=== PATIENT | male | born 1955 | race Caucasian/White ===

== ENCOUNTER → 2023-07-05 07:19 | Outpatient (REF) | payer MEDICARE, OTHER, SELFPAY | LOC: HWRAD 07:19 | PROVIDERS: ATTENDING PHYSICIAN Otolaryngology; FAMILY PHYSICIAN Family Medicine | DX: J32.8 Other chronic sinusitis (principal) | CPT/HCPCS: 70486 ==

== ENCOUNTER → 2023-07-11 06:33 | Outpatient (REF) | payer MEDICARE, OTHER, SELFPAY ==
[2023-07-11 09:47] LABS: % Basophils 1.2 % (0-2); % Eosinophils 4.5 % (0-6); % Immature Granulocytes 0.4 % (0-0.5); % Lymphocytes 24.4 % (20.5-51.1); % Monocytes 10.4 % (1.7-9.3); % Neutrophils 59.1 % (42.2-75.2); Absolute Basophils 0.1 10^3/uL (0-0.2); Absolute Eosinophils 0.2 10^3/uL (0-0.7); Absolute Lymphocytes 1.2 10^3/uL (1.2-3.4); Absolute Monocytes 0.5 10^3/uL (0.1-0.6); Absolute Neutrophils 2.9 10^3/uL (1.4-6.5); Hematocrit 41.5 % (39.0-52.0); Hemoglobin 13.8 g/dL (13.0-18.0); Mean Corp Hgb Conc. 33.3 g/dL (33.0-37.0); Mean Corpuscular Hgb 30.7 pg (27.0-31.0); Mean Corpuscular Volume 92.2 fL (80.0-94.0); Mean Platelet Volume 10.3 fL (7.4-10.4); Nucleated Red Blood Cells % 0 % (-); Platelet Count 90 10^3/uL (130-400); Red Cell Dist. Width 12.1 % (11.5-14.5); White Blood Cell Count 4.9 10^3/uL (4.8-10.8)
[2023-07-11 11:23] LABS: Glycohemoglobin (HgbA1c) 5.6 % (4.0-5.6)
[2023-07-11 14:01] LABS: ALT (SGPT) 24 U/L (0-50); AST (SGOT) 27 U/L (17-59); Albumin 4.6 g/dl (3.5-5.0); Alkaline Phosphatase 89 U/L (38-126); Blood Urea Nitrogen 21 mg/dl (9-20); Calcium 9.8 mg/dl (8.4-10.2); Carbon Dioxide 29 mmol/L (22-30); Chloride 103 mmol/L (98-107); Glucose 103 mg/dl (70-99); HDL Cholesterol 53 mg/dl; LDL Cholesterol, Calculated 91 mg/dl; Sodium 138 mmol/L (135-145); Total Bilirubin 0.8 mg/dl (0.2-1.3); Total Cholesterol 166 mg/dl (50-199); Total Protein 6.4 g/dl (6.3-8.2); Triglyceride 110 mg/dl (10-149); Very Low Density Lipoprotein 22 mg/dl (0-30); eGFR 59.84
[2023-07-11 19:41] LABS: Prolactin 18.1 ng/ml (3.7-17.9)
[2023-07-11 19:56] LABS: TSH 5.78 uIU/ml (0.47-4.68)
== END ==
LOC: HWLAB 06:33
PROVIDERS: ATTENDING PHYSICIAN Family Medicine
DX: C91.10 Chronic lymphocytic leukemia of B-cell type not having achieved remission (principal); E78.2 Mixed hyperlipidemia; N18.31 Chronic kidney disease, stage 3a; R97.20 Elevated prostate specific antigen [PSA]; Z00.00 Encounter for general adult medical examination without abnormal findings; R73.09 Other abnormal glucose
CPT/HCPCS: 36415; 80053; 80061; 83036; 84146; 84403; 84443; 85025

== ENCOUNTER → 2023-09-06 07:02 | Outpatient (REF) | payer MEDICARE, OTHER, SELFPAY | LOC: SDSPAT 07:02 | PROVIDERS: ATTENDING PHYSICIAN Otolaryngology; FAMILY PHYSICIAN Family Medicine | DX: J32.8 Other chronic sinusitis (principal); J34.2 Deviated nasal septum | CPT/HCPCS: 36415; 93005 ==

== ENCOUNTER → 2023-09-19 06:27 | Day surgery (SDC) | payer MEDICARE, OTHER, SELFPAY ==
[2023-09-06 07:11] VITALS: BMI 23.6
[2023-09-19] VITALS (8 sets, daily range): BP systolic 114–154; BP diastolic 65–82; BMI 23.6
[2023-09-19] MEDS: NORMOSOL-R 1000 IV (07:44)
--- NOTE | 2023-09-19 10:42 | SUR.OPER ---
ROBLES SPLINTS AND NASOPORE BILATERAL NOSTRILS IN OR
== END ==
LOC: SDS 06:27
PROVIDERS: ATTENDING PHYSICIAN Otolaryngology
DX: J32.9 Chronic sinusitis, unspecified (principal); J34.2 Deviated nasal septum
CPT/HCPCS: 31276; 31256; 31257; 30520; 88304; 88311; 87070; 87075; 87077; 87185; 87205

== ENCOUNTER → 2023-12-14 06:26 | Outpatient (REF) | payer MEDICARE, OTHER, SELFPAY ==
[2023-12-14 09:41] LABS: % Basophils 1.4 % (0-2); % Eosinophils 5.4 % (0-6); % Lymphocytes 32.1 % (20.5-51.1); % Monocytes 10.6 % (1.7-9.3); % Neutrophils 50.5 % (42.2-75.2); Absolute Basophils 0.1 10^3/uL (0-0.2); Absolute Eosinophils 0.2 10^3/uL (0-0.7); Absolute Lymphocytes 1.2 10^3/uL (1.2-3.4); Absolute Monocytes 0.4 10^3/uL (0.1-0.6); Absolute Neutrophils 1.9 10^3/uL (1.4-6.5); Hematocrit 40.2 % (39.0-52.0); Hemoglobin 13.8 g/dL (13.0-18.0); Mean Corp Hgb Conc. 34.3 g/dL (33.0-37.0); Mean Corpuscular Hgb 29.9 pg (27.0-31.0); Mean Corpuscular Volume 87.2 fL (80.0-94.0); Mean Platelet Volume 11.7 fL (7.4-10.4); Nucleated Red Blood Cells % 0 % (-); Platelet Count 79 10^3/uL (130-400); Red Blood Cell Count 4.61 10^6/uL (4.70-6.10); White Blood Cell Count 3.7 10^3/uL (4.8-10.8)
[2023-12-14 10:08] LABS: ALT (SGPT) 36 U/L (0-50); AST (SGOT) 34 U/L (17-59); Albumin 4.5 g/dl (3.5-5.0); Alkaline Phosphatase 75 U/L (38-126); Blood Urea Nitrogen 23 mg/dl (9-20); Calcium 9.5 mg/dl (8.4-10.2); Carbon Dioxide 27 mmol/L (22-30); Chloride 104 mmol/L (98-107); Glucose 104 mg/dl (70-99); LDH 182 U/L (120-246); Sodium 141 mmol/L (135-145); Total Bilirubin 0.9 mg/dl (0.2-1.3); Total Protein 6.2 g/dl (6.3-8.2); eGFR 59.84
== END ==
LOC: HWLAB 06:26
PROVIDERS: ATTENDING PHYSICIAN Internal Medicine Hematology & Oncology; FAMILY PHYSICIAN Family Medicine
DX: C91.12 Chronic lymphocytic leukemia of B-cell type in relapse (principal); D69.6 Thrombocytopenia, unspecified; R16.1 Splenomegaly, not elsewhere classified; D70.9 Neutropenia, unspecified; R11.2 Nausea with vomiting, unspecified
CPT/HCPCS: 36415; 80053; 83615; 85025

== ENCOUNTER → 2023-12-21 07:56 | Outpatient (REF) | payer MEDICARE, OTHER, SELFPAY | LOC: HWRAD 07:56 | PROVIDERS: ATTENDING PHYSICIAN Internal Medicine Hematology & Oncology; FAMILY PHYSICIAN Family Medicine | DX: C91.12 Chronic lymphocytic leukemia of B-cell type in relapse (principal); D69.6 Thrombocytopenia, unspecified; R16.1 Splenomegaly, not elsewhere classified; D70.9 Neutropenia, unspecified; R11.2 Nausea with vomiting, unspecified | CPT/HCPCS: 71260; 74177; Q9967 ==

== ENCOUNTER → 2024-06-25 07:16 | Outpatient (REF) | payer MEDICARE, OTHER, SELFPAY ==
[2024-06-25 09:54] LABS: ALT (SGPT) 31 U/L (0-50); AST (SGOT) 28 U/L (17-59); Albumin 4.8 g/dl (3.5-5.0); Alkaline Phosphatase 71 U/L (38-126); Blood Urea Nitrogen 23 mg/dl (9-20); Calcium 9.7 mg/dl (8.4-10.2); Carbon Dioxide 29 mmol/L (22-30); Chloride 106 mmol/L (98-107); Glucose 102 mg/dl (70-99); HDL Cholesterol 47 mg/dl; LDL Cholesterol, Calculated 110 mg/dl; Potassium 4.2 mmol/L (3.5-5.1); Sodium 143 mmol/L (135-145); Total Cholesterol 177 mg/dl (50-199); Total Protein 6.3 g/dl (6.3-8.2); Triglyceride 100 mg/dl (10-149); Very Low Density Lipoprotein 20 mg/dl (0-30); eGFR > 60.00
[2024-06-25 10:29] LABS: TSH Reflex To Free T4 4.04 uIU/ml (0.47-4.68)
[2024-06-25 10:36] LABS: Red Cell Dist. Width 11.9 % (11.5-14.5)
[2024-06-25 10:37] LABS: % Eosinophils 3.6 % (0-6); % Immature Granulocytes 0.3 % (0-0.5); % Lymphocytes 26.9 % (20.5-51.1); % Monocytes 10.7 % (1.7-9.3); % Neutrophils 57.5 % (42.2-75.2); Absolute Eosinophils 0.1 10^3/uL (0-0.7); Absolute Lymphocytes 1.1 10^3/uL (1.2-3.4); Absolute Monocytes 0.4 10^3/uL (0.1-0.6); Absolute Neutrophils 2.3 10^3/uL (1.4-6.5); Hematocrit 42.1 % (39.0-52.0); Hemoglobin 14.3 g/dL (13.0-18.0); Mean Corpuscular Hgb 31.2 pg (27.0-31.0); Mean Corpuscular Volume 91.9 fL (80.0-94.0); Mean Platelet Volume 10.6 fL (7.4-10.4); Nucleated Red Blood Cells % 0 % (-); Platelet Count 83 10^3/uL (130-400); Red Blood Cell Count 4.58 10^6/uL (4.70-6.10); White Blood Cell Count 3.9 10^3/uL (4.8-10.8)
[2024-06-25 11:01] LABS: Glycohemoglobin (HgbA1c) 5.5 % (4.0-5.6)
[2024-06-25 14:41] LABS: PSA, Total - Screen 0.75 ng/ml (0.0-4.0)
== END ==
LOC: HWLAB 07:16
PROVIDERS: ATTENDING PHYSICIAN Family Medicine
DX: R97.20 Elevated prostate specific antigen [PSA] (principal); E78.2 Mixed hyperlipidemia; C91.10 Chronic lymphocytic leukemia of B-cell type not having achieved remission; N18.31 Chronic kidney disease, stage 3a; Z00.01 Encounter for general adult medical examination with abnormal findings; R73.9 Hyperglycemia, unspecified; Z12.5 Encounter for screening for malignant neoplasm of prostate
CPT/HCPCS: 36415; 80053; 80061; 83036; 84443; 85025; G0103

== ENCOUNTER → 2025-01-08 07:00 | Outpatient (REF) | payer MEDICARE, OTHER, SELFPAY ==
[2025-01-08 10:48] LABS: ALT (SGPT) 36 U/L (0-50); AST (SGOT) 31 U/L (17-59); Albumin 4.7 g/dl (3.5-5.0); Alkaline Phosphatase 82 U/L (38-126); Blood Urea Nitrogen 21 mg/dl (9-20); Calcium 9.5 mg/dl (8.4-10.2); Carbon Dioxide 30 mmol/L (22-30); Chloride 107 mmol/L (98-107); Glucose 109 mg/dl (70-99); HDL Cholesterol 57 mg/dl; LDH 202 U/L (120-246); LDL Cholesterol, Calculated 107 mg/dl; Potassium 4.1 mmol/L (3.5-5.1); Sodium 138 mmol/L (135-145); Total Protein 6.5 g/dl (6.3-8.2); Very Low Density Lipoprotein 17 mg/dl (0-30); eGFR > 60.00
[2025-01-08 10:50] LABS: Hematocrit 42.3 % (39.0-52.0); Hemoglobin 14.0 g/dL (13.0-18.0); Mean Corp Hgb Conc. 33.1 g/dL (33.0-37.0); Mean Corpuscular Volume 90.2 fL (80.0-94.0); Nucleated Red Blood Cells % 0 % (-); Platelet Count 81 10^3/uL (130-400); Red Cell Dist. Width 13.0 % (11.5-14.5)
[2025-01-08 11:19] LABS: Glycohemoglobin (HgbA1c) 5.5 % (4.0-5.6)
== END ==
LOC: HWLAB 07:00
PROVIDERS: ATTENDING PHYSICIAN Internal Medicine Hematology & Oncology; FAMILY PHYSICIAN Family Medicine
DX: C91.12 Chronic lymphocytic leukemia of B-cell type in relapse (principal); D69.6 Thrombocytopenia, unspecified; R16.1 Splenomegaly, not elsewhere classified; D70.9 Neutropenia, unspecified; R11.2 Nausea with vomiting, unspecified; E78.2 Mixed hyperlipidemia; N18.31 Chronic kidney disease, stage 3a; R73.9 Hyperglycemia, unspecified
CPT/HCPCS: 36415; 80053; 80061; 83036; 83615; 85025

== ENCOUNTER → 2025-01-15 16:12 | Outpatient (REF) | payer MEDICARE, OTHER, SELFPAY | LOC: RAD 16:12 | PROVIDERS: ATTENDING PHYSICIAN Internal Medicine Hematology & Oncology; FAMILY PHYSICIAN Family Medicine | DX: C91.12 Chronic lymphocytic leukemia of B-cell type in relapse (principal); D69.6 Thrombocytopenia, unspecified; R16.1 Splenomegaly, not elsewhere classified; D70.9 Neutropenia, unspecified; R11.2 Nausea with vomiting, unspecified | CPT/HCPCS: 71260; 74177; Q9967 ==